=== PATIENT | female | born 1975 | race Caucasian/White ===

== ENCOUNTER → 2016-06-27 | Outpatient (REF) | payer OTHER ==
[2016-06-27 15:14] LABS: BASO % 0.2 % (0.0-1.0); EOS # 0.1 K/mm3 (0.0-0.50); EOS % 1.5 % (0.0-3.0); LARGE UNSTAINED CELL # 0.1 K/mm3 (0.0-0.4); LARGE UNSTAINED CELL % 1.1 % (0.0-4.0); LYMPH % 10.9 % (24.0-44.0); MEAN CORPUSCULAR HGB CONC 32.7 g/dl (32.0-36.5); MEAN CORPUSCULAR VOLUME 88.5 fl (80.0-96.0); MONO # 0.4 K/mm3 (0.0-0.8); NEUTROPHILS # 6.5 K/mm3 (1.8-7.7); NEUTROPHILS % 81.2 % (36.0-66.0); PLATELET COUNT, AUTOMATED 249 k/mm3 (150-450); RED CELL DISTRIBUTION WIDTH 13.9 % (11.5-14.5); WHITE BLOOD COUNT 7.9 K/mm3 (4.0-10.0)
[2016-06-27 15:40] LABS: ALBUMIN 3.8 GM/DL (3.2-5.2); ALBUMIN/GLOBULIN RATIO 1.31 (1.00-1.93); ALKALINE PHOSPHATASE 45 U/L (45-117); ALT/SGPT 14 U/L (12-78); ANION GAP 7 MEQ/L (8-16); AST/SGOT 6 U/L (15-37); BILIRUBIN,TOTAL 0.5 MG/DL (0.2-1.0); BLOOD UREA NITROGEN 12 MG/DL (7-18); CALCIUM LEVEL 8.8 MG/DL (8.5-10.1); CARBON DIOXIDE LEVEL 28 MEQ/L (21-32); CHLORIDE LEVEL 107 MEQ/L (98-107); GLOMERULAR FILTRATION RATE > 60.0 (>58); GLUCOSE, FASTING 82 MG/DL (70-105); POTASSIUM SERUM 4.2 MEQ/L (3.5-5.1); SODIUM LEVEL 142 MEQ/L (136-145); TOTAL PROTEIN 6.7 GM/DL (6.4-8.2)
== END ==
LOC: M LABNEURO 14:40
PROVIDERS: ATTEND Psychiatry & Neurology Neurology
DX: G35 Multiple sclerosis (principal)

== ENCOUNTER → 2017-12-27 | Outpatient (REF) | payer OTHER ==
[2017-12-27 18:31] LABS: BASO % 0.3 % (0.0-1.0); EOS # 0.2 10^3/uL (0.0-0.50); EOS % 2.5 % (0.0-3.0); HEMATOCRIT 42.5 % (36.0-47.0); HEMOGLOBIN 14.3 g/dl (12.0-15.5); IMMATURE GRANULOCYTE % 0.3 % (0-3.0); LYMPH # 0.8 10^3/uL (1.5-4.5); LYMPH % 13.1 % (24.0-44.0); MEAN CORPUSCULAR HEMOGLOBIN 28.7 pg (27.0-33.0); MEAN CORPUSCULAR HGB CONC 33.6 g/dl (32.0-36.5); MEAN CORPUSCULAR VOLUME 85.3 fl (80.0-96.0); MONO # 0.5 10^3/uL (0.0-0.8); MONO % 8.7 % (0.0-5.0); NEUTROPHILS # 4.5 10^3/uL (1.8-7.7); NEUTROPHILS % 75.1 % (36.0-66.0); PLATELET COUNT, AUTOMATED 295 10^3/uL (150-450); RED BLOOD COUNT 4.98 10^6/uL (4.00-5.40); RED CELL DISTRIBUTION WIDTH 15.2 % (11.5-14.5)
[2017-12-27 18:37] LABS: ALBUMIN/GLOBULIN RATIO 1.29 (1.00-1.93); ALKALINE PHOSPHATASE 52 U/L (45-117); ALT/SGPT 16 U/L (12-78); ANION GAP 6 MEQ/L (8-16); AST/SGOT 6 U/L (7-37); BILIRUBIN,TOTAL 0.5 MG/DL (0.2-1.0); BLOOD UREA NITROGEN 6 MG/DL (7-18); CALCIUM LEVEL 8.7 MG/DL (8.5-10.1); CARBON DIOXIDE LEVEL 26 MEQ/L (21-32); CHLORIDE LEVEL 109 MEQ/L (98-107); CREATININE FOR GFR 0.69 MG/DL (0.55-1.30); GLOMERULAR FILTRATION RATE > 60.0 (>58); GLUCOSE, FASTING 86 MG/DL (70-100); POTASSIUM SERUM 4.7 MEQ/L (3.5-5.1); SODIUM LEVEL 141 MEQ/L (136-145); TOTAL PROTEIN 7.1 GM/DL (6.4-8.2)
== END ==
LOC: M LABNEURO 13:40
DX: G35 Multiple sclerosis (principal)
CPT/HCPCS: 82607

== ENCOUNTER → 2018-12-26 | Outpatient (REF) | payer OTHER ==
[2018-12-26 15:43] LABS: BASO % 0.4 % (0.0-1.0); EOS # 0.1 10^3/uL (0.0-0.5); EOS % 1.3 % (0.0-3.0); HEMATOCRIT 41.1 % (36.0-47.0); HEMOGLOBIN 13.7 g/dl (12.0-15.5); LYMPH # 0.8 10^3/uL (1.5-5.0); MEAN CORPUSCULAR HEMOGLOBIN 29.4 pg (27.0-33.0); MEAN CORPUSCULAR HGB CONC 33.3 g/dl (32.0-36.5); MEAN CORPUSCULAR VOLUME 88.2 fl (80.0-96.0); MONO # 0.6 10^3/uL (0.0-0.8); MONO % 7.8 % (0.0-5.0); NEUTROPHILS # 5.6 10^3/uL (1.5-8.5); NEUTROPHILS % 79.1 % (36.0-66.0); PLATELET COUNT, AUTOMATED 323 10^3/uL (150-450); RED BLOOD COUNT 4.66 10^6/uL (4.00-5.40); WHITE BLOOD COUNT 7.1 10^3/uL (4.0-10.0)
[2018-12-26 15:51] LABS: ALBUMIN 3.9 GM/DL (3.2-5.2); ALT/SGPT 16 U/L (12-78); BILIRUBIN,TOTAL 1.1 MG/DL (0.2-1.0); BLOOD UREA NITROGEN 10 MG/DL (7-18); CALCIUM LEVEL 8.7 MG/DL (8.5-10.1); CARBON DIOXIDE LEVEL 28 MEQ/L (21-32); CHLORIDE LEVEL 108 MEQ/L (98-107); CREATININE FOR GFR 0.66 MG/DL (0.55-1.30); GLOMERULAR FILTRATION RATE > 60.0 (>58); GLUCOSE, FASTING 73 MG/DL (70-100); POTASSIUM SERUM 4.1 MEQ/L (3.5-5.1); SODIUM LEVEL 141 MEQ/L (136-145); TOTAL PROTEIN 6.9 GM/DL (6.4-8.2)
[2018-12-26 15:59] LABS: FOLATE 6.9 NG/ML (>5.4); VITAMIN B12 LEVEL 799 PG/ML (247-911)
== END ==
LOC: M LABNEURO 12:59
PROVIDERS: ATTEND Psychiatry & Neurology Neurology
DX: G35 Multiple sclerosis (principal)

== ENCOUNTER → 2020-01-08 | Outpatient (CLI) | payer BC, OTHER ==
[~2020-01-08] MED LIST: GABA-1171 PO; PERC5TAB12 PO; RITA10TA PO; SERT-138 PO; TECF240C PO; TRAZ1TAB14 PO
== END ==
LOC: M LABSMTC 10:05
PROVIDERS: ATTEND Anesthesiology
DX: Z01.812 Encounter for preprocedural laboratory examination (principal); Z20.828 Contact with and (suspected) exposure to other viral communicable diseases
CPT/HCPCS: C9803; U0003

== ENCOUNTER → 2020-01-08 | Outpatient (CLI) | payer BC ==
[2020-01-08 11:45] LABS: HEMATOCRIT 40.5 % (36.0-47.0); HEMOGLOBIN 13.1 g/dl (12.0-15.5); MEAN CORPUSCULAR HEMOGLOBIN 27.9 pg (27.0-33.0); MEAN CORPUSCULAR HGB CONC 32.3 g/dl (32.0-36.5); MEAN CORPUSCULAR VOLUME 86.2 fl (80.0-96.0); PLATELET COUNT, AUTOMATED 302 10^3/uL (150-450); WHITE BLOOD COUNT 8.3 10^3/uL (4.0-10.0)
--- NOTE | 2020-01-10 08:08 | ECGEPIP ---
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 Clincal correlation advised Electronically Signed on 01-10-2020 8:07:48 EDT by Remberto Muñoz
== END ==
LOC: M LAB 10:33
PROVIDERS: ATTEND Anesthesiology
DX: R94.31 Abnormal electrocardiogram [ECG] [EKG] (principal); G35 Multiple sclerosis

== ENCOUNTER 2020-01-13 11:35 | Day surgery (SDC) | payer BC ==
[~2020-01-13] VITALS: Ht 167.6 cm; Wt 67.1 kg
[~2020-01-13 11:35] MED LIST changes: +LR 1,000 ML IV ONE; -PERC5TAB12 PO
[2020-01-13] MEDS ORDERED: ceFAZolin 2 GM/D5W 50 ML IV BAG (J0690 PER 500MG) As Ordered ONE (14:10)
[2020-01-13] MEDS ORDERED: ceFAZolin SOD 2 GM in IV 1 EA IV ONE (14:30)
[2020-01-13] MEDS ORDERED: MIDAZOLAM INJ 2MG/2ML VIAL (J2250 PER 1MG) As Ordered ONE (14:40)
[2020-01-13] MEDS ORDERED: fentaNYL 250 MCG/5 ML INJECTION (J3010) As Ordered ONE (14:41)
[2020-01-13] MEDS ORDERED: ROCURONIUM BROMIDE 50 MG/5 ML VIAL As Ordered ONE ×2 (14:42→15:48)
[2020-01-13] MEDS ORDERED: TRANEXAMIC ACID 100 MG/ML 10ML VIAL As Ordered ONE (14:43)
[2020-01-13] MEDS ORDERED: THROMBIN SOLN 20,000 UNITS KIT As Ordered ONE (14:43)
[2020-01-13] MEDS ORDERED: propofoL 200 MG/20 ML VIAL As Ordered ONE (14:43)
[2020-01-13] MEDS ORDERED: BUPIVACAINE/EPIN 0.5% 30 ML VIAL As Ordered ONE (14:44)
[2020-01-13] MEDS ORDERED: BACITRACIN PWD 50,000 UNITS VIAL As Ordered ONE (14:44)
[2020-01-13] MEDS ORDERED: BUPIVACAINE HCL 0.25% 10ML VIAL As Ordered ONE (14:44)
[2020-01-13] MEDS ORDERED: EPINEPHrine INJ 1 MG/ML 1ML AMP As Ordered ONE (14:44)
[2020-01-13] MEDS ORDERED: BUPIVACAINE LIPOSOME/PF 1.3% 20ML VIAL (13.3MG/ML)(EXPAREL)(C9290 PER1MG) As Ordered ONE (14:44)
[2020-01-13] MEDS ORDERED: LIDOCAINE 2% 100MG/5ML SDV (FOR ANES.) As Ordered ONE (14:47)
[2020-01-13] MEDS ORDERED: ONDANSETRON 4MG/2ML VIAL As Ordered ONE (15:28)
[2020-01-13] MEDS ORDERED: dexameTHASONE 4 MG/ML 1ML VIAL (J1100 PER 1MG) As Ordered ONE (15:28)
[2020-01-13] MEDS ORDERED: SUGAMMADEX SODIUM 500 MG/5 ML VIAL (BRIDION) As Ordered ONE (15:29)
[2020-01-13] MEDS ORDERED: BUPIVACAINE/EPIN 0.25% 30 ML VIAL As Ordered ONE (15:33)
--- NOTE | 2020-01-13 16:21 | REP ---
INDICATION: LEFT L5/S1 HERNIATED DISC. COMPARISON: None. TECHNIQUE: A single portably obtained cross-table lateral radiograph of the lumbar spine is presented, time stamp 23:55 p.m.. FINDINGS: An intraoperative probe is noted at the dorsal aspect of the lumbar spine spinal canal at the L5-S1 level. IMPRESSION: Procedural imaging. <Electronically signed by Raphael Fleming > 01/13/20 [id number]
[2020-01-13] MEDS: fentaNYL 100 MCG/2 ML INJECTION (J3010) IV PRN ×4 (17:00→17:17)
[2020-01-13] MEDS ORDERED: oxyCODONE 5MG TAB As Ordered ONE (17:00)
[2020-01-13] MEDS ORDERED: fentaNYL 100 MCG/2 ML INJECTION (J3010) As Ordered ONE (17:00)
[2020-01-13] MEDS: oxyCODONE 5MG TAB PO PRN ×2 (17:00→17:35)
[2020-01-13] MEDS ORDERED: PERCOCET 5MG/325MG TAB PO PRN (17:30)
[2020-01-13] MEDS ORDERED: CYCLOBENZAPRINE 10MG TABLET PO PRN (17:30)
[2020-01-13] MEDS ORDERED: LR 1,000 ML IV SCH (17:30)
[2020-01-13] MEDS ORDERED: ONDANSETRON 4MG/2ML VIAL IV PRN ×2 (17:30→20:30)
[2020-01-13] MEDS ORDERED: D5W/LR 1,000 ML IV SCH (17:30)
[2020-01-13] MEDS ORDERED: HYDROMORPHONE HCL 0.5 MG/ 0.5 ML SYRINGE (J1170 PER 1) IV PRN ×3 (17:30)
[2020-01-13 18:45] VITALS: BP 139/87
[2020-01-13 19:15] VITALS: BP 130/83
[2020-01-13 20:15] VITALS: BP 127/83
[2020-01-13] MEDS: PERCOCET 5MG/325MG TAB PO PRN (20:38)
[2020-01-13] MEDS ORDERED: GABAPENTIN 100 MG CAP PO SCH (21:00)
[2020-01-13 21:15] VITALS: BP 128/82
[2020-01-13 22:15] VITALS: BP 103/78
[2020-01-13] MEDS: ceFAZolin SOD 1 GM in D5W MINI-BAG PLUS 50 ML IV SCH (23:08)
[2020-01-13 23:15] VITALS: BP 106/80
[2020-01-14] MEDS: PERCOCET 5MG/325MG TAB PO PRN (00:55)
[2020-01-14 06:00] VITALS: BP 127/71
[2020-01-14] MEDS ORDERED: PERC5TAB12 PO (06:01)
[2020-01-14] MEDS: ceFAZolin SOD 1 GM in D5W MINI-BAG PLUS 50 ML IV SCH (07:02)
[2020-01-14] MEDS ORDERED: METAMUCIL (PSYLLIUM) PACKET PO SCH (09:00)
[2020-01-14] MEDS ORDERED: CelecoXIB (CeleBREX) 100 MG CAP PO ONE (09:00)
--- NOTE | 2020-01-14 14:43 | RO ---
DATE OF OPERATION: 01/13/2020 PREOPERATIVE DIAGNOSIS: Left lower extremity radiculopathy secondary to disk herniation at L5-L1 to the left. POSTOPERATIVE DIAGNOSIS: Left lower extremity radiculopathy secondary to disk herniation at L5-L1 to the left. PROCEDURE PERFORMED: Microdiskectomy, left L5-S1. SURGEON: Guillermo Steve MD ASSISSTANT: GENO Small ANESTHESIA: General. ESTIMATED BLOOD LOSS: Less than 40 ml, replaced with crystalloid. COMPLICATIONS: No complications. INDICATIONS: Left lower extremity radicular pain going on for a number of months. MRI evidence of disk herniation. The patient elects for operative intervention. OPERATIVE COURSE: Identified in the holding area, site and side verified; brought to the operating room. General endotracheal anesthesia was administered, and she was positioned in the prone position on the Aristides frame. Once she was sterilely prepped and draped in the usual fashion, and I and the bill poster installer were comfortable with the patient's positioning, a timeout was accomplished. Next, the incision infiltrated with 0.25% Marcaine with epinephrine based on bony landmarks. I stood on the patient's left and Mr. Gonzales on the right. I utilized 3.5 loupe magnification in the start beginning of the case. Incision was made with a 10 blade knife, developed down through skin and subcuticular tissues to the posterior lumbar fascia. The posterior lumbar fascia was reflected off the spinous process of L5 and the dissection continued along the L5 lamina. A divot was drilled in the L5 lamina. A Marcelino Edson was placed in the divot and a cross table lateral was taken to verify our level. Next, once this was accomplished, the dissection continued further inferiorly exposing the lamina of S1 and facet complex and we placed the Shadow-Line retractor. Next, at this stage my loupe magnification and head lamp were removed, the operating microscope was sterilely draped and brought in. Posterior lamina of 5 removed on the left aspect using [place] followed by use of the high-speed drill. Mr. Gonzales utilized oculars on the patient's right; eye oculars on the left. The high-speed goldie was utilized to implement a left unilateral laminotomy extending superiorly to the bare area of L5 and inferiorly into the proximal lamina of S1. Approximately one goldie width of the L5-S1 medial facet aspect was incorporated. Ligamentum flavum was elevated using curved curettes, removed using pituitaries and Kerrisons #2. The thecal sac was directly visualized. The S1 nerve root was appreciated to be significantly elevated and the disk herniation seemed to have axillary component. I was able, however, to sweep the S1 nerve root medially and placed a suction Emilia retractor. Mr. Gonzales secured the retractor. I opened the annulus using an 11 blade, removed protruded disk material piecemeal. Next, this was accomplished using peoples pituitary. Bipolar cautery was utilized for hemostasis. I explored along the traversing and exiting nerve root using the Marcelino Edson and no additional friable material was appreciated. Next, once this was accomplished, thrombin Gelfoam was applied for hemostasis. It was then removed. We irrigated with a saline solution. We then removed retractors, reapproximated the posterior lumbar fascia with interrupted stitch; deep dermis with interrupted stitch. Prineo dressing applied. The patient was able to be then rolled to the hospital bed, extubated, and moved to recovery room in good condition. Mr. Gonzales participated in the entirety of the case in the capacity of logistics assistant. For further details, please refer to the medical record. WILLIAM
== END 2020-01-14 08:50 | disposition home or self-care (01) ==
LOC: M SDC 11:35 → M MS5PR 18:30 → M SDC 01-14 08:50
PROVIDERS: ATTEND Orthopaedic Surgery
DX: M51.16 Intervertebral disc disorders with radiculopathy, lumbar region (principal); G35 Multiple sclerosis; F32.9 Major depressive disorder, single episode, unspecified; Z79.899 Other long term (current) drug therapy
CPT/HCPCS: 36415; 63030; 76000; 81025; 86850; 86900; 86901; 88304; 96365; 96366; 96375; C9290; J0690; J1100; J2250; J2405; J3010